=== PATIENT | male | born 1955 | race Caucasian/White ===

== ENCOUNTER 2017-11-07 10:48 | Inpatient (IN) | payer OTHER ==
[~2017-11-07] VITALS: Ht 182.9 cm; Wt 94.9 kg
[2017-11-07 10:52] VITALS: Ht 182.9 cm; Wt 94.9 kg
[2017-11-07 12:20] LABS: BASOPHIL % 0.3 % (0-2); PLATELET COUNT 223 x10^3mcL (130-400)
[2017-11-07 12:28] LABS: CALCIUM 9.3 mg/dL (8.5-10.1); CARBON DIOXIDE 28.3 mmol/L (21-32); CREATININE SERUM 1.3 mg/dL (0.7-1.3); POTASSIUM SERUM 4.7 mmol/L (3.5-5.1)
[2017-11-07 12:45] LABS: RED CELL DISTRIBUTION WIDTH 14.6 % (11.5-14.5)
[2017-11-07 17:14] VITALS: BP 119/71
[2017-11-07 17:33] VITALS: BP 137/80
[2017-11-07 20:47] VITALS: BP 128/75
[2017-11-08 04:55] VITALS: BP 124/73
[2017-11-08 08:02] VITALS: BP 121/81
[2017-11-08] MEDS ORDERED: KETOROLAC TROME10 MG PO (11:08)
[2017-11-08 13:36] VITALS: BP 150/90
== END 2017-11-08 17:21 | disposition home or self-care (01) | DRG 552 ==
LOC: ED 10:48 → DU 13:40
PROVIDERS: Emergency Medicine
DX: S32.019A Unspecified fracture of first lumbar vertebra, initial encounter for closed fracture (principal); S82.891A Other fracture of right lower leg, initial encounter for closed fracture; W11.XXXA Fall on and from ladder, initial encounter; Y93.89 Activity, other specified; Y99.8 Other external cause status; Y92.048 Other place in boarding-house as the place of occurrence of the external cause
CPT/HCPCS: J1885; J2270; J3010; J7030